=== PATIENT | female | born 1990 | race African-American/Black ===

== ENCOUNTER 2019-01-20 13:26 | Emergency (ER) | payer SELFPAY ==
[~2019-01-20] VITALS: Ht 167.6 cm; Wt 70.3 kg
[2019-01-20 13:58] VITALS: BP 121/63
--- NOTE | 2019-01-20 13:58 | NUR ---
ED Nurse Note: Pt walked into ED w/ c/o spider bite on forehead 11/27. Pt had blurry vision and throbbing headcahe. Pt saw blood coming out of bite last night. Afebrile. No SOB. VSS.
--- NOTE | 2019-01-20 14:00 | NUR ---
ED Nurse Note: ERPa at bedside.
--- NOTE | 2019-01-20 14:33 | NUR ---
ED Nurse Note: ERPA at bedside for I&D.
--- NOTE | 2019-01-20 14:46 | Emergency Room Report ---
History of Present Illness General Chief Complaint: Animal Bite Source: Patient Present Illness HPI 28 YO Female presents to the ED c/o 11/27 in severity pain, swelling, and erythema of localized palpable cyst on the left side of the forehead. Pt. reports there was some blood coming out of the center last night. Symptoms x 3 days. No radiation. No fevers or chills. not UTD with tdap. no other aggravating factors at this time. Pt. reports very oily skin. and previous similar lesion on the left side of the face which resolved on its own. Pt. reports the size of swelling and tenderness has been progressive. She attempted warm compresses without relief. Patient History Past Medical History: see triage record Past Surgical History: none Pertinent Family History: none Last Menstrual Period: 01/20/19 Now: No Reviewed Nursing Documentation: PMH: Agreed; PSxH: Agreed Nursing Documentation-PMH Past Medical History: No Stated History Review of Systems All Other Systems: negative except mentioned in HPI Physical Exam Vital Signs Date Time Temp Pulse Resp B/P (MAP) Pulse Ox O2 Delivery O2 Flow Rate FiO2 01/20/19 13:49 98.8 75 18 121/63 (82) 100 Room Air Sp02 EP Interpretation: reviewed, normal General Appearance: no apparent distress, alert, GCS 15, non-toxic Head: normocephalic, atraumatic, other - 3cm fluctuant well circumscribed erythematous and warm cyst visualized on the left side of the forehead. no bleeding or drainage at this time. Eyes: bilateral eye normal inspection, bilateral eye PERRL, bilateral eye visual acuity ENT: hearing grossly normal, normal voice Neck: full range of motion Respiratory: lungs clear, normal breath sounds, speaking full sentences Cardiovascular #1: regular rate, rhythm Musculoskeletal: gait/station normal, non-tender Neurologic: alert, motor strength/tone normal, oriented x3, sensory intact, responsive, speech normal Psychiatric: judgement/insight normal Skin: other - 3cm fluctuant well circumscribed erythematous and warm cyst visualized on the left side of the forehead. no bleeding or drainage at this time. Lymphatic: no adenopathy Procedures Incision and Drainage Incision and Drainage : Consent: Verbal Site: left side of the forehead Blade Size: 16g needle I & D Procedure: betadine prep, sterile drapes applied, sterile dressing applied Wound Location: face Wound's Depth, Shape: other - needle aspiration/puncture Wound Length (cm): 1 Wound Explored: contaminated - 6g needle 3cc's of purulent d/c was expressed. Splint Applied?: No Sling Applied?: No Patient Tolerated: Well Complications: None Medical Decision Making PA Attestation Dr. Gaines is my supervising Physician whom patient management has been discussed with. Diagnostic Impression: Primary Impression: Infected cyst of skin ER Course 28 YO Female presents to the ED c/o 11/27 in severity pain, swelling, and erythema of localized palpable cyst on the left side of the forehead. Pt. reports there was some blood coming out of the center last night. Symptoms x 3 days. No radiation. No fevers or chills. not UTD with tdap. no other aggravating factors at this time. Pt. reports very oily skin. and previous similar lesion on the left side of the face which resolved on its own. Pt. reports the size of swelling and tenderness has been progressive. She attempted warm compresses without relief. Ddx considered but are not limited to cellulitis, abscess, cystic acne, necrotizing fasciitis, insect bite. Vital signs: are WNL, pt. is afebrile H&PE are most consistent with infected epidermoid cyst. ORDERS: none required at this time, the diagnosis is clinical ED INTERVENTIONS: -Needle Aspiration using a 16g needle 3cc's of purulent d/c was expressed. DISCHARGE: At this time pt. is stable for d/c to home. Will provide printed patient care instructions, and any necessary prescriptions. Care plan and follow up instructions have been discussed with the patient prior to discharge. Last Vital Signs Date Time Temp Pulse Resp B/P (MAP) Pulse Ox O2 Delivery O2 Flow Rate FiO2 01/20/19 13:58 98.8 75 18 121/63 100 Room Air Status: improved Disposition: HOME, SELF-CARE Condition: Stable Scripts Mupirocin* (MUPIROCIN*) 22 Gm Oint...g. 1 APPLIC TOPIC THREE TIMES A DAY, #22 GM Prov: Cyndi Calvin 01/20/19 Clindamycin Hcl (CLINDAMYCIN HCL) 300 Mg Capsule 300 MG ORAL FOUR TIMES A DAY for 7 Days, #28 CAP Prov: Cyndi Calvin 01/20/19 Referrals: NON PHYSICIAN (PCP) Departure Forms: Return to Work Return to Work Date: Jan 25, 2019 Work Restrictions: None Other Restrictions: May return Sooner if Symptoms have resolved. Return to Full Activity: Jan 25, 2019 Patient Instructions: Abscess, [id number] Additional Instructions: Take medications as directed. Follow up with a Primary Care Provider in 3-5 days for DERMATOLOGY REFERRAL , even if your symptoms have resolved. --Please review list of primary care clinics, if you do not already have a primary care provider Return sooner to ED if new symptoms occur, or current symptoms become worse. - Please note that this Emergency Department Report was dictated using [employer] phlebotomist technology software, occasionally this can lead to erroneous entry secondary to interpretation by the dictation equipment. Cyndi Calvin Jan 20, 2019 14:46
[2019-01-20] MEDS ORDERED: CLINDAMYCIN HC300 MG ORAL (14:47)
[2019-01-20] MEDS ORDERED: MUPIROCIN22 GM TOPIC (14:47)
[2019-01-20 15:04] VITALS: BP 121/63
--- NOTE | 2019-01-20 15:04 | NUR ---
ED Nurse Note: Pt cleared by ERMD for discharge. DC instructions/prescription was given and explained to pt and verbalized understanding of teachings. All medical deviecs such as ID band removed. Pt is AAO x4, ambulatory and left with all personal belongings. Accompanied by a family member.
== END 2019-01-20 15:04 | disposition home or self-care (01) ==
LOC: EMR 14:08
DX: L72.9 Follicular cyst of the skin and subcutaneous tissue, unspecified (principal); B99.9 Unspecified infectious disease
CPT/HCPCS: 99283

== ENCOUNTER 2019-01-29 11:48 | Emergency (ER) | payer MEDICAID ==
[~2019-01-29] VITALS: Ht 167.6 cm; Wt 68.0 kg
[~2019-01-29 11:48] MED LIST: CLINDAMYCIN HC300 MG ORAL; MUPIROCIN22 GM TOPIC
[2019-01-29 12:06] VITALS: BP 122/48
--- NOTE | 2019-01-29 12:06 | NUR ---
ED Nurse Note: Patient walked in to ED c/o cyst on left forehead. Patient was seen here last 01/20 for the same reason. Patient states it is draining and it neeeds to be removed because it is bothering her vision. No SOB. Afebrile. VSS.
--- NOTE | 2019-01-29 12:48 | NUR ---
ED Nurse Note: ERPA at bedside.
--- NOTE | 2019-01-29 12:53 | Emergency Room Report ---
History of Present Illness General Chief Complaint: Wound Recheck/Suture Removal Source: Patient Present Illness HPI 28 YO Female presents to the ED c/o recurrent tenderness to the Left side of the forehead since 01/20. Pt. dx with epidermoid cyst that was infected. pt. completed course of oral abx. she is currently using topical abx. pt. reports erythema and swelling has improved however she has intermittent burning pain with palpation or pullling her hair back. pt. reports persistent drainage daily that is thick and white. Pt. denies fevers, chills neck pain or stiffness. She denies ESCALANTE. She reports burning sensation radiating down to towards the left cheek/ left eye. denies visual changes/ loss of vision, floaters or eye pain. Pt. reports pain exacerbated with squinting her eyes- pulls tight on her forehead. PT. is UTD with vaccinations. She went to her PCP office but her PCP is out on maternity leave. Pt. has not seen dermatology or plastics. Denies trauma or fall. No other aggravating or relieving symptoms at this time. Allergies: Coded Allergies: No Known Allergies (Unverified , 01/29/19) Patient History Past Medical History: none Past Surgical History: unable to obtain Pertinent Family History: none Last Menstrual Period: 01/24/19 Now: No Reviewed Nursing Documentation: PMH: Agreed; PSxH: Agreed Nursing Documentation-PMH Past Medical History: No History, Except For Hx Cardiac Problems: No - Review of Systems All Other Systems: negative except mentioned in HPI Physical Exam Vital Signs Date Time Temp Pulse Resp B/P (MAP) Pulse Ox O2 Delivery O2 Flow Rate FiO2 01/29/19 11:58 97.9 82 17 122/48 (72) 98 Room Air Sp02 EP Interpretation: reviewed, normal General Appearance: no apparent distress, alert, GCS 15, non-toxic Head: normocephalic, atraumatic, other - LEft sided forehead 2.7cm epidermoid cyst with open punctate center, not draining, no erythema, no swelling at this time. well circumscribed. NO crusting, blisters or vessicles. Eyes: bilateral eye normal inspection, bilateral eye PERRL, bilateral eye EOMI , bilateral eye other - no photophobia ENT: hearing grossly normal, normal voice Neck: full range of motion, no meningismus Respiratory: lungs clear, normal breath sounds, speaking full sentences Cardiovascular #1: regular rate, rhythm, no edema Musculoskeletal: normal range of motion, gait/station normal, non-tender Neurologic: alert, motor strength/tone normal, oriented x3, sensory intact, responsive, speech normal Psychiatric: judgement/insight normal Skin: other - LEft sided forehead 2.7cm epidermoid cyst with open punctate center, not draining, no erythema, no swelling at this time. well circumscribed. NO crusting, blisters or vessicles. Lymphatic: no adenopathy Medical Decision Making PA Attestation Dr. Laird Is my supervising Physician whom patient management has been discussed with. Diagnostic Impression: Primary Impression: Encounter for wound re-check Additional Impression: Epidermoid cyst of face ER Course 28 YO Female presents to the ED c/o recurrent tenderness to the Left side of the forehead since 01/20. Pt. dx with epidermoid cyst that was infected. pt. completed course of oral abx. she is currently using topical abx. pt. reports erythema and swelling has improved however she has intermittent burning pain with palpation or pullling her hair back. pt. reports persistent drainage daily that is thick and white. Pt. denies fevers, chills neck pain or stiffness. She denies ESCALANTE. She reports burning sensation radiating down to towards the left cheek/ left eye. denies visual changes/ loss of vision, floaters or eye pain. Pt. reports pain exacerbated with squinting her eyes- pulls tight on her forehead. PT. is UTD with vaccinations. She went to her PCP office but her PCP is out on maternity leave. Pt. has not seen dermatology or plastics. Denies trauma or fall. No other aggravating or relieving symptoms at this time. Ddx considered but are not limited to cellulitis, epidermoid cyst, abscess, allergic reaction, zoster, hypersensitivity just to name a few. Vital signs: are WNL, pt. is afebrile H&PE are most consistent with epidermoid cyst not infected at this time, but persistent. much improved in appearance in comparison to initial onset. ORDERS: none required at this time, the diagnosis is clinical ED INTERVENTIONS: None required at this time. --Pt. required return to work note filled out/ return from [facility]. -I do not identify an emergent condition at this time. With current presentation , pt. is stable for close outpatient follow up and conservative treatment. D/ w pt. to return promptly to ED with worsening or new symptoms.- Pt. verbalizes' understanding and agreement with proposed treatment plan.proposed treatment plan. DISCHARGE: At this time pt. is stable for d/c to home. Will provide printed patient care instructions, and any necessary prescriptions. Care plan and follow up instructions have been discussed with the patient prior to discharge. Last Vital Signs Date Time Temp Pulse Resp B/P (MAP) Pulse Ox O2 Delivery O2 Flow Rate FiO2 01/29/19 12:06 97.9 82 17 122/48 98 Room Air Disposition: HOME, SELF-CARE Condition: Stable Scripts Acetaminophen* (TYLENOL EXTRA STRENGTH*) 500 Mg Tablet 500 MG ORAL Q6H, #20 TAB 0 Refills Prov: Cyndi Calvin 01/29/19 Lidocaine (LC-4) 45 Gm Cream..g. 1 APPLIC TP Q6HR, #45 GM Prov: Cyndi Calvin 01/29/19 Referrals: NON PHYSICIAN (PCP) Patient Instructions: Wound Check Additional Instructions: Take medications as directed. Follow up with a PLASTIC SURGEON OR CONFIGURATION ENGINEER WITHIN 3-5 days For SURGICAL REMOVAL OF Facial Cyst. --Please contact your insurance provider for Plastic surgeons or internet network specialist who are within your insurance network. Otherwise contact your PCP office for a referral. There is no need to have a PCP evaluation prior to referral as you have been evaluated twice in the Emergency Department for this medical issue and only a Plastic surgeon or Forging Dies Final Finisher can provide definitive care for your condition. Return sooner to ED if new symptoms occur, or current symptoms become worse. - Please note that this Emergency Department Report was dictated using [employer] sequestration plant engineer technology software, occasionally this can lead to erroneous entry secondary to interpretation by the dictation equipment. Cyndi Calvin Jan 29, 2019 12:52
[2019-01-29] MEDS ORDERED: TYLENOL EXTRA500 MG ORAL (12:55)
[2019-01-29] MEDS ORDERED: LC-445 GM TP (12:55)
[2019-01-29 13:15] VITALS: BP 122/48
--- NOTE | 2019-01-29 13:15 | NUR ---
ED Nurse Note: Pt cleared by ERMD for discharge. DC instructions/prescription was given and explained to pt and verbalized understanding of teachings. All medical deviecs such as ID band removed. Pt is AAO x4, ambulatory and left with all personal belongings. Accompanied by family member.
== END 2019-01-29 13:15 | disposition home or self-care (01) ==
LOC: EMR 12:26
DX: Z09 Encounter for follow-up examination after completed treatment for conditions other than malignant neoplasm (principal); L72.8 Other follicular cysts of the skin and subcutaneous tissue
CPT/HCPCS: 99281